=== PATIENT | male | born 1975 | race Caucasian/White ===

== ENCOUNTER 2018-02-12 10:11 | Emergency (ER) | payer SELFPAY ==
[2018-02-12] MEDS ORDERED: ACETAMINOPHEN 325 MG TABLET PO ONE (10:14)
--- NOTE | 2018-02-12 10:32 | ER Document Report ---
ED General - General Chief Complaint: Knee Injury Stated Complaint: LEG INJURY Time Seen by Provider: 02/12/18 10:29 Mode of Arrival: Wheelchair Information source: Patient TRAVEL OUTSIDE OF THE [place] IN LAST 30 DAYS: No - HPI Notes: 43-year-old male presents to the ED for complaints of right knee pain after a tree hit him yesterday. Pain is 6 out of 10, sharp, aching at rest. no radiation of pain. has not tried any icing, heat or elevation. Denies any fevers or chills. Unable to bear full weight. worse with time, nothing is making better. Denies prior history of trauma. denies fevers, chills, chest pain,palpitations, shortness of breath, dyspnea, nausea, vomiting, diarrhea, abdominal pain, hematuria,blurred vision, double vision, loss of vision, speech changes, LH, dizziness, syncope, headaches, wheezing, ST, URI, neck pain, weakness, bowel or bladder dysfunction, saddle anesthesia, numbness or tingling in bilateral upper or lower extremities equally, muscle paralysis, weakness in bilateral upper or lower extremities equally or rash. Denies IV drug use. - Related Data Allergies/Adverse Reactions: No Known Allergies Allergy (Verified 02/12/18 10:12) Past Medical History - General Information source: Patient - Social History Smoking Status: Never Smoker Family History: Reviewed & Not Pertinent - Immunizations Hx Diphtheria, Pertussis, Tetanus Vaccination: No Review of Systems - Review of Systems Constitutional: No symptoms reported EENT: No symptoms reported Cardiovascular: No symptoms reported Respiratory: No symptoms reported Gastrointestinal: No symptoms reported Genitourinary: No symptoms reported Male Genitourinary: No symptoms reported Musculoskeletal: See HPI Skin: No symptoms reported Hematologic/Lymphatic: No symptoms reported Neurological/Psychological: No symptoms reported -: Yes All other systems reviewed and negative Physical Exam - Notes Notes: PHYSICAL EXAMINATION: GENERAL: Well-appearing, well-nourished and in no acute distress. HEAD: Atraumatic, normocephalic. EYES: Pupils equal round and reactive to light, extraocular movements intact, sclera anicteric, conjunctiva are normal. ENT: Nares patent, oropharynx clear without exudates. Moist mucous membranes. NECK: Normal range of motion, supple without lymphadenopathy LUNGS: Breath sounds clear to auscultation bilaterally and equal. No wheezes rales or rhonchi. HEART: Regular rate and rhythm without murmurs ABDOMEN: Soft, nontender, nondistended abdomen. No guarding, no rebound. No masses appreciated. Musculoskeletal: Normal range of motion, no pitting or edema. No cyanosis. Right knee pain with palpation to lateral aspect of knee with noted swelling. negative sloane's sign. anterior and posterior drawer test negative. noted pain with posterior aspect. Dtr + 2 in BLE. Full motor and sensory function to BLE equally. No open wounds. No induration or drainage. Strength 5 out of 5 bilaterally equally. Ankle examination normal. Squeeze test negative. Hip examination normal. Pulses + 2 bilaterally and equally.negative squeeze bilaterally and equally. NEUROLOGICAL: Cranial nerves grossly intact. Normal speech, normal gait. Normal sensory, motor exams PSYCH: Normal mood, normal affect. SKIN: Warm, Dry, normal turgor, no rashes or lesions noted. Course - Re-evaluation Re-evalutation: 02/12/18 10:45 43-year-old male who is afebrile, vitals stable and in no distress evaluation for right knee pain after use up a tree days ago while he was at work. Right x- ray negative for fracture, does show a small joint effusion. No evidence of a septic joint, gout flare, dislocation, or fracture on exam and imaging. Vitals wnl. At this time, I do not see an indication for labs or further imaging. I have reevaluated this patient multiple times and no significant life threatening changes, no signs of toxicity, sepsis or peritonitis are noted. The patient and I have discussed the diagnosis and risks, and we agree with discharging home and close follow-up. We also discussed returning to the Emergency Department immediately if new or worsening symptoms occur with the understanding that symptoms and presentations can change. At this time will discharge with return precautions and follow-up recommendations. Verbal discharge instructions given a the bedside and opportunity for questions given. We have discussed the symptoms which are most concerning (e.g., sudden onset weakness, fever, changing or worsening pain) that necessitate immediate return. Medication warnings reviewed. All questions and concerns answered by this provider. Patient is in agreement with this plan and has verbalized understanding of return precautions and the need for primary care follow-up in the next 24-72 hours. Patient verbalized understanding of plan of care and agree with plan of care. Discharge - Discharge Clinical Impression: Right knee sprain Qualifiers: Encounter type: initial encounter Involved ligament of knee: other ligament Qualified Code(s): S83.8X1A - Sprain of other specified parts of right knee, initial encounter Condition: Good Instructions: Use of Crutches ([facility]), Ice & Elevation ([facility]), Knee Immobilizing Splint ([facility]), Sprained Knee ([facility]) Additional Instructions: You do not have evidence of a fracture on today's xrays. Your pain is likely to do soft tissue swelling and inflammation. This can last up to 6 weeks before completely resolving. You should continue to apply ice to the area regularly, keep the affected area elevated, and take ibuprofen 600mg every 6 hours as needed for pain. Please return if you have worsening pain, weakness, numbness, notice increasing redness or swelling to the area, develop a fever, or have any other symptoms that are concerning to you. Prescriptions: Ibuprofen 600 mg PO QIDP PRN #20 tablet PRN Reason: Forms: Return to Work Referrals: FARTUN TOBIAS DO [ACTIVE STAFF] - Follow up in 3-5 days JEANNE AMBROCIO DO [NO LOCAL MD] - Follow up in 3-5 days
[2018-02-12] MEDS ORDERED: KETOROLAC TROMETHAMINE 60 MG/2 ML SDV IM ONE (10:42)
--- NOTE | 2018-02-12 10:52 | RADIOLOGY REPORT (SQ) ---
EXAM DESCRIPTION: KNEE LEFT 4 VIEW COMPLETED DATE/TIME: 02/12/2018 10:41 am REASON FOR STUDY: injury COMPARISON: None. NUMBER OF VIEWS: Four views left knee. LIMITATIONS: None. FINDINGS: Small joint effusion. Bones intact. Maintained joint spaces. OTHER: No other significant finding. IMPRESSION: Small joint effusion. TECHNICAL DOCUMENTATION: JOB ID: [id number] Reading location - IP/workstation name: [email or web address]
== END 2018-02-12 11:06 | disposition home or self-care (01) ==
LOC: ER 10:11
DX: S83.91XA Sprain of unspecified site of right knee, initial encounter (principal); W22.8XXA Striking against or struck by other objects, initial encounter; Y93.H9 Activity, other involving exterior property and land maintenance, building and construction; Y99.0 Civilian activity done for income or pay
CPT/HCPCS: 99283; 96372; 73564; L1830; J1885

== ENCOUNTER 2019-01-29 16:49 | Emergency (ER) | payer SELFPAY ==
[2019-01-29] MEDS ORDERED: ONDANSETRON HCL INJ/PF 4 MG/2 ML SDV IV ONE (18:19)
[2019-01-29] MEDS ORDERED: KETOROLAC TROMETHAMINE INJ/PF 30 MG/1 ML SDV IV ONE (18:19)
[2019-01-29] MEDS ORDERED: NORMAL SALINE 1000 ML 1,000 ML IV ONE (18:19)
--- NOTE | 2019-01-29 18:24 | ER Document Report ---
ED GI/ - General Chief Complaint: Abdominal Pain Stated Complaint: ABDOMINAL PAIN Time Seen by Provider: 01/29/19 18:12 Mode of Arrival: Ambulatory Information source: Patient TRAVEL OUTSIDE OF THE [place] IN LAST 30 DAYS: No - HPI Patient complains to provider of: Abdominal pain, Other - LEFT KNEE PAIN Notes: 01/29/19 18:22 Patient here with complaints of abdominal pain, vomiting, feeling dehydrated left knee pain. Patient states that 2 days ago he was having some nausea and vomiting and felt like he was dehydrated while at work. Yesterday he went to work and actually vomited while he was at work. States nausea and vomiting seems to have improved some. Complains of having some right upper quadrant pain with this over the last few days. No chest pain or shortness of breath. No dysuria or hematuria. No diarrhea. No fever. No rash, no injury. He also states that there is a red swollen area to the left lateral aspect of the knee. No specific injury to this area. Full range of motion. No numbness, Eugene, weakness. Pain is constant, moderate, worse with movement. No other complaints. - Related Data Allergies/Adverse Reactions: No Known Allergies Allergy (Verified 01/29/19 16:50) Past Medical History - Social History Smoking Status: Unknown if Ever Smoked Family History: Reviewed & Not Pertinent Renal/ Medical History: Denies: Hx Peritoneal Dialysis - Immunizations Hx Diphtheria, Pertussis, Tetanus Vaccination: No Review of Systems - Review of Systems -: Yes All other systems reviewed and negative Physical Exam - Vital signs Vitals: Temp Pulse Resp BP Pulse Ox 98.6 F 90 18 113/75 96 01/29/19 16:52 01/29/19 16:52 01/29/19 16:52 01/29/19 16:52 01/29/19 16:52 - Notes Notes: GENERAL: alert, cooperative, nontoxic, no distress. HEAD: normocephalic, atraumatic EYES: conjunctiva pink without discharge, no external redness or swelling. EARS: no external swelling, no external redness NOSE: atraumatic, no external swelling MOUTH/THROAT: mucous membranes moist and pink, posterior pharynx without erythema, swelling, exudate. No trismus or drooling. NECK: soft, supple, full range of motion, no meningismus. CHEST: no distress, lungs clear and equal throughout. No wheezing, rales, rhonchi. CARDIAC: regular rate and rhythm, no murmur, normal capillary refill, normal pulses. No peripheral edema noted. ABDOMEN: Soft, tenderness to palpation of the right upper quadrant with mild voluntary guarding. No rebound tenderness. BACK: full range of motion, no CVA tenderness. EXTREMITIES: full range of motion of all extremities. Indurated area to the lateral aspect of the left knee with a scabbed center. Surrounding erythema. Tenderness to palpation. No circumferential erythema or knee effusion. Full range of motion of the left knee. Normal pulse and sensation distally. NEURO: alert and oriented x 3, no focal deficits, full range of motion of all extremities. PYSCH: appropriate mood, affect. Patient is cooperative. SKIN: pink, warm, dry, no rash. Course - Re-evaluation Re-evalutation: 01/29/19 20:09 Patient noted to have blood in his urine with no signs of infection, white count minimally elevated at 11. Chemistries and lipase currently pending. Right upper quadrant ultrasound and chest x-ray are negative. Due to the fact of where his pain is in the fact that he has blood in his urine I have ordered a CT without contrast to assess for potential kidney stone as the source of his pain. I updated the patient who verbalized understanding. We will continue to monitor. 01/29/19 21:33 Patient nontoxic-appearing with stable vitals. Patient here with complaints of right-sided abdominal pain. Initial labs showed a slightly elevated white count of 11. Chemistries show slightly elevated creatinine 1.77. The patient does report that he has had some nausea vomiting felt dehydrated, therefore it is p ossible that this could just be secondary to dehydration. He was given normal saline here in the emergency department. I have no previous labs to compare this to. I did inform the patient that he needs to have this reevaluated with his primary care doctor to ensure that this has improved. CT the abdomen and pelvis without contrast shows no acute abnormality with left-sided nonobstructive kidney stone. Patient is noted to have a early abscess to the left lateral knee with some mild surrounding cellulitis. It does not appear to be fluctuant at all and is not ready for I&D at this time. There is no sign of knee joint infection. Patient will be given a dose of antibiotics in the emergency department and will be discharged home on Bactrim and Keflex regarding the infection on his leg. He will also be given a prescription for some Zofran as well as Ultram. He is instructed to follow-up with his primary care doctor in the next few days to have his renal function checked as well as to have the lesion on his leg reevaluated. He should follow-up sooner if he develops any worsening pain in the abdomen, worsening pain or redness or swelling in the leg, persistent vomiting, high fever, or for any further concerns. The patient's emergency department workup and current diagnosis were explained to the patient and or family. Follow-up instructions were provided. Medications if prescribed were discussed. Instructions for when to return to the emergency department including specific worrisome symptoms were discussed with the patient and/or family. - Vital Signs Vital signs: Temp Pulse Resp BP Pulse Ox 98.6 F 90 18 113/75 96 01/29/19 16:52 01/29/19 16:52 01/29/19 16:52 01/29/19 16:52 01/29/19 16:52 - Laboratory Result Diagrams: 01/29/19 18:18 01/29/19 18:18 Laboratory results interpreted by me: 01/29/19 01/29/19 01/29/19 18:18 18:18 19:18 WBC 11.8 H Absolute Neutrophils 8.6 H Chloride 96 L BUN 34 H Creatinine 1.77 H Est GFR ( Amer) 51 L Est GFR (Non-Af Amer) 42 L Calcium 10.4 H ALT 17 L Total Protein 9.8 H Albumin 5.6 H Urine Blood MODERATE H Urine Urobilinogen 2.0 H - Diagnostic Test Radiology reviewed: Image reviewed, Reports reviewed - Chest x-ray negative, right upper quadrant ultrasound negative, CT abdomen pelvis with a nonobstructive left kidney stone, no other acute abnormalities. Discharge - Discharge Clinical Impression: Acute kidney injury, Dehydration, Cellulitis and abscess of left leg Abdominal pain Qualifiers: Abdominal location: right upper quadrant Qualified Code(s): R10.11 - Right upper quadrant pain Hematuria Qualifiers: Hematuria type: unspecified type Qualified Code(s): R31.9 - Hematuria, unspecified Condition: Stable Disposition: HOME, SELF-CARE Instructions: Abdominal Pain ([facility]), Dehydration ([facility]), Hematuria ([facility]), Kidney Failure ([facility]) Additional Instructions: Take medication as prescribed. Drink plenty of fluids. Follow-up with your family doctor at the next available appointment to have your kidney function rechecked as well as to reevaluate the wound on your leg. Follow-up sooner for worsening pain, fever, redness, swelling, persistent vomiting, or for any further concerns. Prescriptions: Tramadol HCl [Ultram 50 mg Tablet] 50 mg PO Q6HP PRN #12 tablet PRN Reason: Cephalexin Monohydrate [Keflex 500 mg Capsule] 500 mg PO Q6H #40 capsule Ondansetron HCl [Zofran 4 mg Tablet] 1 tab PO Q6H PRN #10 tablet PRN Reason: Sulfamethoxazole/Trimethoprim [Bactrim Ds Tablet] 1 each PO BID #20 tablet Forms: Elevated Blood Pressure, Smoking Cessation Education Referrals: [facility] [Provider Group] - Follow up as needed [facility] [Provider Group] - Follow up as needed
--- NOTE | 2019-01-29 19:03 | RADIOLOGY REPORT (SQ) ---
EXAM DESCRIPTION: CHEST 2 VIEWS COMPLETED DATE/TIME: 01/29/2019 6:50 pm REASON FOR STUDY: RIGHT FLANK/RUQ PAIN COMPARISON: None. EXAM PARAMETERS: NUMBER OF VIEWS: two views TECHNIQUE: Digital Frontal and Lateral radiographic views of the chest acquired. RADIATION DOSE: NA LIMITATIONS: none FINDINGS: LUNGS AND PLEURA: No opacities, masses or pneumothorax. No pleural effusion. MEDIASTINUM AND HILAR STRUCTURES: No masses or contour abnormalities. HEART AND VASCULAR STRUCTURES: Heart normal size. No evidence for failure. BONES: No acute findings. HARDWARE: None in the chest. OTHER: No other significant finding. IMPRESSION: NO ACUTE RADIOGRAPHIC FINDING IN THE CHEST. TECHNICAL DOCUMENTATION: JOB ID: [id number] [employer]- All Rights Reserved Reading location - IP/workstation name: [email or web address]
--- NOTE | 2019-01-29 19:22 | RADIOLOGY REPORT (SQ) ---
EXAM DESCRIPTION: U/S ABDOMEN LIMITED W/O DOP COMPLETED DATE/TIME: 01/29/2019 7:10 pm REASON FOR STUDY: RIGHT FLANK/RUQ PAIN COMPARISON: None. TECHNIQUE: Dynamic and static grayscale images acquired of the abdomen and recorded on PACS. Additio violetta selected color Doppler and spectral images recorded. LIMITATIONS: None. FINDINGS: PANCREAS: No masses. Visualized pancreatic duct normal caliber. LIVER: No masses. Echotexture normal. LIVER VASCULATURE: Normal directional flow of the main portal vein and hepatic veins. GALLBLADDER: No stones. Normal wall thickness. No pericholecystic fluid. ULTRASOUND-DETECTED NAM'S SIGN: Negative. INTRAHEPATIC DUCTS AND COMMON DUCT: CBD and intrahepatic ducts normal caliber. No filling defects. INFERIOR VENA CAVA: Normal flow. AORTA: No aneurysm. RIGHT KIDNEY: Normal size. Normal echogenicity. No solid or suspicious masses. No hydronephrosis. No calcifications. PERITONEAL AND RIGHT PLEURAL SPACE: No ascites or effusions. OTHER: No other significant findings. IMPRESSION: No ultrasound findings of the right upper quadrant to explain pain. Consider CT or MRI to further evaluate unexplained abdominal pain. TECHNICAL DOCUMENTATION: JOB ID: [id number] [employer]- All Rights Reserved Reading location - IP/workstation name: [email or web address]
[2019-01-29 19:37] LABS: ABSOLUTE EOSINOPHILS # (AUTO) 0.1 10^3/uL (0.0-0.6); ABSOLUTE LYMPHOCYTES (AUTO) 2.1 10^3/uL (0.5-4.7); ABSOLUTE MONOCYTES (AUTO) 0.9 10^3/uL (0.1-1.4); ABSOLUTE NEUT (AUTO) 8.6 10^3/uL (1.7-8.2); BASOPHILS % (AUTO) 0.4 % (0-2); EOSINOPHILS % (AUTO) 1.2 % (0-6); HEMATOCRIT 48.3 % (37.9-51.0); HEMOGLOBIN 15.9 g/dL (13.5-17.0); LYMPHOCYTES % (AUTO) 18.1 % (13-45); MEAN CORPUSCULAR HEMOGLOBIN 30.3 pg (27.0-33.4); MEAN CORPUSCULAR VOLUME 92 fl (80-97); MONOCYTES % (AUTO) 7.4 % (3-13); PLATELET COUNT 386 10^3/uL (150-450); RED BLOOD COUNT 5.26 10^6/uL (4.35-5.55); SEGMENTED NEUTROPHILS % (AUTO) 72.9 % (42-78); TOTAL CELLS COUNTED % (AUTO) 100 %; WHITE BLOOD COUNT 11.8 10^3/uL (4.0-10.5)
[2019-01-29 19:46] LABS: APPEARANCE,URINE CLEAR; BILIRUBIN,URINE NEGATIVE (NEGATIVE); COLOR,URINE YELLOW; GLUCOSE, URINE NEGATIVE (NEGATIVE); KETONES,URINE NEGATIVE (NEGATIVE); LEUKOCYTE ESTERASE,URINE NEGATIVE (NEGATIVE); NITRITE,URINE NEGATIVE (NEGATIVE); PROTEIN,URINE NEGATIVE (NEGATIVE); URINE SPECIFIC GRAVITY 1.026
[2019-01-29 20:17] LABS: ALANINE AMINOTRANSFERASE 17 U/L (21-72); ALBUMIN 5.6 g/dL (3.5-5.0); ALKALINE PHOSPHATASE 75 U/L (38-126); ANION GAP 18 (5-19); ASPARTATE AMINO TRANSFERASE 27 U/L (17-59); BILIRUBIN,DIRECT 0.3 mg/dL (0.0-0.4); BILIRUBIN,TOTAL 0.9 mg/dL (0.2-1.3); BLOOD UREA NITROGEN 34 mg/dL (7-20); CALCIUM 10.4 mg/dL (8.4-10.2); CARBON DIOXIDE 27 mmol/L (22-30); CHLORIDE 96 mmol/L (98-107); GLUCOSE 90 mg/dL (75-110); LIPASE 44.6 U/L (23-300); POTASSIUM 4.5 mmol/L (3.6-5.0); SODIUM 140.7 mmol/L (137-145); TOTAL PROTEIN 9.8 g/dL (6.3-8.2)
--- NOTE | 2019-01-29 21:05 | RADIOLOGY REPORT (SQ) ---
CT ABDOMEN PELVIS WITHOUT IV CONTRAST HISTORY: Right upper quadrant pain. Hematuria. COMPARISON: None. TECHNIQUE: CT scan of the abdomen and pelvis was performed without IV contrast. This exam was performed according to our departmental dose-optimization program, which includes automated exposure control, adjustment of the mA and/or kV according to patient size and/or use of iterative reconstruction technique. FINDINGS: The lung bases are clear. No pleural or pericardial effusions. There is no hiatal hernia. The gallbladder is contracted, limiting evaluation. The liver, spleen, pancreas, adrenal glands, and kidneys are unremarkable. There is a punctate nonobstructing stone in the left kidney lower pole. The pelvic organs are also unremarkable. No small bowel obstruction. The appendix is normal. There is no evidence of diverticulitis. No intraperitoneal free fluid or free air is identified. The aorta is normal caliber. No acute osseous findings are appreciated. No pathologic body wall hernia is seen. IMPRESSION: 1. No acute abdominal or pelvic pathology. 2. Please note the gallbladder is contracted which limits evaluation. Consider gallbladder ultrasound if there is high clinical concern. 3. Punctate nonobstructing stone in left kidney. No hydronephrosis.
[2019-01-29] MEDS ORDERED: SULFAMETHOXAZOLE/TRIMETHOPRIM 800-160 MG TABLET PO ONE (21:35)
[2019-01-29] MEDS ORDERED: CEPHALEXIN 500 MG CAPSULE PO ONE (21:35)
[2019-01-29 22:27] VITALS: BP 112/72
== END 2019-01-29 22:30 | disposition home or self-care (01) ==
LOC: ER 16:49
DX: N17.9 Acute kidney failure, unspecified (principal); E86.0 Dehydration; M25.562 Pain in left knee; L03.116 Cellulitis of left lower limb; R10.11 Right upper quadrant pain; R11.2 Nausea with vomiting, unspecified; R31.9 Hematuria, unspecified
CPT/HCPCS: 99284; 96361; 96374; 96375; 36415; 83690; 85025; 80053; 81001; 71046; 76705; 74176; J1885; J2405; J7030

== ENCOUNTER 2019-01-31 18:09 | Emergency (ER) | payer SELFPAY ==
[2019-01-31 18:36] VITALS: BP 119/78
--- NOTE | 2019-01-31 19:30 | ER Document Report ---
ED Medical Screen (RME) - General Chief Complaint: Abscess Recheck Stated Complaint: WOUND CHECK Time Seen by Provider: 01/31/19 19:26 Mode of Arrival: Ambulatory Information source: Patient Notes: 44-year-old male presented to ED for follow-up for an abscess on the left lateral knee. He was seen several days ago and was given a prescription for Bactrim and Keflex but states that he could not afford the prescriptions and has not started on. Patient is alert oriented respirations regular and unlabored. I have cleaned the wound with surgical scrub, rinsed it off with saline, opened it up with an 18-gauge and send a wound culture. Patient will need antibiotics in the emergency room as he states he cannot afford prescriptions. I have greeted and performed a rapid initial assessment of this patient. A comprehensive ED assessment and evaluation of the patient, analysis of test results and completion of medical decision making process will be conducted by an additional ED providers. Dictation of this chart was performed using voice recognition software; therefore, there may be some unintended grammatical errors. TRAVEL OUTSIDE OF THE [place] IN LAST 30 DAYS: No - Related Data Allergies/Adverse Reactions: No Known Allergies Allergy (Verified 01/31/19 18:28) Past Medical History - Social History Chew tobacco use (# tins/day): No Frequency of alcohol use: None Drug Abuse: Marijuana Renal/ Medical History: Denies: Hx Peritoneal Dialysis - Immunizations Hx Diphtheria, Pertussis, Tetanus Vaccination: No Physical Exam - Vital signs Vitals: Temp Pulse Resp BP Pulse Ox 98.5 F 77 22 H 119/78 95 01/31/19 18:35 01/31/19 18:35 01/31/19 18:35 01/31/19 18:35 01/31/19 18:35 Course - Vital Signs Vital signs: Temp Pulse Resp BP Pulse Ox 98.5 F 77 22 H 119/78 95 01/31/19 18:35 01/31/19 18:35 01/31/19 18:35 01/31/19 18:35 01/31/19 18:35
== END 2019-01-31 21:15 | disposition left against medical advice (07) ==
LOC: ER 18:09
DX: L02.416 Cutaneous abscess of left lower limb (principal)
CPT/HCPCS: 87070; 87077; 87186; 87205; 99281

== ENCOUNTER 2019-02-25 11:31 | Emergency (ER) | payer SELFPAY ==
[2019-02-25 11:42] VITALS: BP 117/74
[2019-02-25] MEDS ORDERED: IBUPROFEN 600 MG TABLET PO ONE (12:08)
[2019-02-25] MEDS ORDERED: OXYCODONE-ACETAMINOPHEN 5-325 MG TABLET PO ONE (12:08)
--- NOTE | 2019-02-25 12:10 | ER Document Report ---
ED Medical Screen (RME) - General Chief Complaint: Abscess Stated Complaint: KNEE PAIN Time Seen by Provider: 02/25/19 12:03 Mode of Arrival: Ambulatory Information source: Patient Notes: Patient is a 44-year-old male presented to the emergency department with abscess to his left lumbar area that has been there for several days. He does report has been draining but is causing him severe pain. He also reports a sore or abscess to his left anterior knee. He reports limited range of motion due to the pain and swelling. Denies any fever or chills. Exam: Swelling noted to left knee over the anterior surface, limited range of motion. X-rays ordered of left knee to evaluate for joint effusion versus osteomyelitis although I feel this is unlikely. Patient will be medicated in triage for pain with oral medications, he will then be seen in the back for probable incision and drainage I have greeted and performed a rapid initial assessment of this patient. A comprehensive ED assessment and evaluation of the patient, analysis of test results and completion of the medical decision making process will be conducted by additional ED providers. I have specifically instructed the patient or family members with the patient to immediately return to any nursing staff should anything change in the patient's condition or with their chief complaint. This medical record was dictated with voice recognizing software. There may be grammatical, syntax errors that are unintended. TRAVEL OUTSIDE OF THE [place] IN LAST 30 DAYS: No - Related Data Allergies/Adverse Reactions: No Known Allergies Allergy (Verified 02/25/19 11:32) Past Medical History - Social History Frequency of alcohol use: None Drug Abuse: Marijuana Renal/ Medical History: Denies: Hx Peritoneal Dialysis - Immunizations Hx Diphtheria, Pertussis, Tetanus Vaccination: No Physical Exam - Vital signs Vitals: Temp Pulse Resp BP Pulse Ox 97.8 F 73 18 117/74 99 02/25/19 11:36 02/25/19 11:36 02/25/19 11:36 02/25/19 11:36 02/25/19 11:36 Course - Vital Signs Vital signs: Temp Pulse Resp BP Pulse Ox 97.8 F 73 18 117/74 99 02/25/19 11:36 02/25/19 11:36 02/25/19 11:36 02/25/19 11:36 02/25/19 11:36
--- NOTE | 2019-02-25 12:41 | RADIOLOGY REPORT (SQ) ---
EXAM DESCRIPTION: KNEE LEFT 4 VIEW COMPLETED DATE/TIME: 02/25/2019 12:25 pm REASON FOR STUDY: Pain, swelling, eval for effusion COMPARISON: 02/12/2018 NUMBER OF VIEWS: Four views. TECHNIQUE: AP, lateral, and both oblique radiographic images acquired of the left knee. LIMITATIONS: None. FINDINGS: MINERALIZATION: Normal. BONES: No acute fracture or dislocation. No worrisome bone lesions. JOINT: No effusion. SOFT TISSUES: Focal soft tissue prominence overlies the patella. OTHER: No other significant finding. IMPRESSION: Prepatellar soft tissue prominence. No joint effusion. No acute osseous injury. TECHNICAL DOCUMENTATION: JOB ID: [id number] [employer].- All Rights Reserved Reading location - IP/workstation name: [email or web address]
--- NOTE | 2019-02-25 13:58 | ER Document Report ---
ED General - General Chief Complaint: Abscess Stated Complaint: KNEE PAIN Time Seen by Provider: 02/25/19 12:03 Mode of Arrival: Ambulatory Notes: 44-year-old male presented to the emergency department with abscess to his left lumbar area that has been there for several days. He does report has been draining but is causing him severe pain. He also reports a sore or abscess to his left anterior knee. He reports limited range of motion due to the pain and swelling. Denies any fever or chills. Denies any nausea or vomiting, denies neck stiffness, denies IV drug use. TRAVEL OUTSIDE OF THE [place] IN LAST 30 DAYS: No - Related Data Allergies/Adverse Reactions: No Known Allergies Allergy (Verified 02/25/19 11:32) Past Medical History - General Information source: Patient - Social History Smoking Status: Current Every Day Smoker Frequency of alcohol use: None Drug Abuse: Marijuana Family History: Reviewed & Not Pertinent Patient has suicidal ideation: No Patient has homicidal ideation: No Renal/ Medical History: Denies: Hx Peritoneal Dialysis - Immunizations Hx Diphtheria, Pertussis, Tetanus Vaccination: No Review of Systems - Review of Systems Constitutional: See HPI EENT: No symptoms reported Cardiovascular: See HPI Respiratory: See HPI Gastrointestinal: See HPI Genitourinary: No symptoms reported Male Genitourinary: No symptoms reported Musculoskeletal: No symptoms reported Skin: See HPI Hematologic/Lymphatic: No symptoms reported Neurological/Psychological: No symptoms reported Physical Exam - Vital signs Vitals: Temp Pulse Resp BP Pulse Ox 97.8 F 73 18 117/74 99 02/25/19 11:36 02/25/19 11:36 02/25/19 11:36 02/25/19 11:36 02/25/19 11:36 - Notes Notes: PHYSICAL EXAMINATION: Reviewed vital signs and charting by RN GENERAL: Alert, interacts well. No acute distress. HEAD: Normocephalic, atraumatic. EYES: Pupils equal and round. Extraocular movements intact. ENT: Oral mucosa moist, tongue midline. NECK: Full range of motion. Trachea midline. LUNGS: Clear to auscultation bilaterally, no wheezes, rales, or rhonchi. No respiratory distress. HEART: Regular rate and rhythm. No murmur ABDOMEN: soft, non-tender. No distention. Bowel sounds present EXTREMITIES: Moves all 4 extremities spontaneously. No edema, No cyanosis. PSYCH: Normal affect, normal mood. SKIN: Abscess he left lumbar area with erythematous base and a scab over it from patient attempting to manipulate it. Also has a small abscess on the left knee with a small scab where it looks like there was a head and drainage. Course - Re-evaluation Re-evalutation: 02/25/19 14:46 Patient presents with symptoms most consistent with an acute cellulitis. Vitals within normal limits. Patient does not meet sepsis criteria is overall very w ell in appearance. Exam and history are not consistent with DVT. Patient will be started on coverage for both staph and strep. Incision and drainage performed on the lumbar abscess. The area of erythema on his knee was not amendable to an incision and drainage. Patient is afebrile and no evidence of systemic infection. Plan is to give him another prescription for Bactrim and Keflex as he lost his previous ones that did not get filled. At this time will discharge with return precautions and follow-up recommendations. Verbal discharge instructions given a the bedside and opportunity for questions given. Medication warnings reviewed. Patient is in agreement with this plan and has verbalized understanding of return precautions and the need for primary care follow-up in the next 24-72 hours He is stable for discharge. 02/25/19 14:48 - Vital Signs Vital signs: Temp Pulse Resp BP Pulse Ox 97.8 F 73 18 117/74 99 02/25/19 11:36 02/25/19 11:36 02/25/19 11:36 02/25/19 11:36 02/25/19 11:36 Discharge - Discharge Clinical Impression: Abscess Cellulitis Qualifiers: Site of cellulitis: other site Qualified Code(s): L03.818 - Cellulitis of other sites Condition: Good Disposition: HOME, SELF-CARE Additional Instructions: The rash is likely due to infection of your skin called cellulitis. We performe d an incision and drainage of the one in your back and did get a little bit of purulent discharge from it. The one on your knee was not amendable to cutting open.. You need to take the antibiotics as prescribed. Do not stop even if the rash goes away until you have completed all the antibiotics. The area of redness was traced out here in the emergency department with a marking pen. You need to return to emergency department if the redness spreads outside of this area by more than 2 cm in any direction. You should also return if you develop fevers with temperature greater than 101, persistent vomiting, worsening pain, or have any other symptoms that are concerning to you.
[2019-02-25] MEDS ORDERED: CEPHALEXIN 500 MG CAPSULE PO ONE (14:51)
[2019-02-25] MEDS ORDERED: SULFAMETHOXAZOLE/TRIMETHOPRIM 800-160 MG TABLET PO ONE (14:51)
== END 2019-02-25 15:05 | disposition home or self-care (01) ==
LOC: ER 11:31
DX: L02.212 Cutaneous abscess of back [any part, except buttock and flank] (principal); L02.416 Cutaneous abscess of left lower limb; F17.200 Nicotine dependence, unspecified, uncomplicated
CPT/HCPCS: 99283; 73564; A6266

== ENCOUNTER 2019-02-27 20:09 | Emergency (ER) | payer SELFPAY ==
[2019-02-27] MEDS ORDERED: SULFAMETHOXAZOLE/TRIMETHOPRIM 800-160 MG TABLET PO ONE (21:26)
[2019-02-27] MEDS ORDERED: CEPHALEXIN 500 MG CAPSULE PO ONE (21:26)
--- NOTE | 2019-02-27 21:32 | ER Document Report ---
HPI - HPI Patient complains to provider of: left knee pain Pain Level: 5 Context: Patient is a 44-year-old male presents to the emergency department complaining of a left knee redness and swelling. Patient states he was at this facility 2 days ago for an abscess now on his left back. States that was incised and drained. States he also had a scab and some minor redness noted on his left knee at that point in time. States the provider took the scab off and stated he may have draining. Patient states the redness and draining has continued and he thinks increased which is why he presents to the emergency room. Patient has 2 markings on his left knee with surgical marker. They were both places by staff on 02/25/2019. The redness and swelling does not go past those 2 markings. there is some active discharge noted from the lesion on the left knee. Patient has full range of motion of his left knee without pain. States only pain he has is when you actively touch the discharge. Patient denies any history of MRSA. Patient states he was given 2 antibiotics but has been unable to fill them so he has not been taking them. Patient denies fevers. Past Medical History - General Information source: Patient - Social History Smoking Status: Current Every Day Smoker Chew tobacco use (# tins/day): No Frequency of alcohol use: None Drug Abuse: Marijuana Family History: Reviewed & Not Pertinent Patient has suicidal ideation: No Patient has homicidal ideation: No Renal/ Medical History: Denies: Hx Peritoneal Dialysis - Immunizations Hx Diphtheria, Pertussis, Tetanus Vaccination: No Vertical Provider Document - CONSTITUTIONAL Agree With Documented VS: Yes Notes: GENERAL: Alert, interacts well. No acute distress. HEAD: Normocephalic, atraumatic. EYES: Pupils equal, round, and reactive to light. Extraocular movements intact. ENT: Oral mucosa moist, tongue midline. NECK: Full range of motion. Supple. Trachea midline. LUNGS: Clear to auscultation bilaterally, no wheezes, rales, or rhonchi. No respiratory distress. HEART: Regular rate and rhythm. No murmur ABDOMEN: Soft, non-tender. Non-distended. Bowel sounds present in all 4 quadrants. EXTREMITIES: Moves all 4 extremities spontaneously. normal radial and dorsalis pedis pulses bilaterally. Approximately 3 cm x 3 cm area of redness with active purulent discharge noted anterior aspect of left knee. Full range of motion left knee no pain. Pain only upon palpation of active discharge site. BACK: no cervical, thoracic, lumbar midline tenderness. No saddle anesthesia, normal distal neurovascular exam. 2 cm x 2 cm area of active discharge noted left flank. Minor erythema surrounding. NEUROLOGICAL: Alert and oriented x3. Normal speech. cranial nerves II through XII grossly intact PSYCH: Normal affect, normal mood. SKIN: Warm, dry, normal turgor. No rashes or lesions noted. - INFECTION CONTROL TRAVEL OUTSIDE OF THE [place] IN LAST 30 DAYS: No Course - Re-evaluation Re-evalutation: Nursing staff ordered an x-ray of the left knee at triage. This was before I evaluated the patient. 02/27/19 21:29 Patient has full range of motion of the left knee. There is some minor erythema with active discharge noted to lesion. No true areas of fluctuance or induration noted. I am not suspecting septic joint at this time. patient denies fevers. Redness is well within the surgical marker barnes with which were placed on 02/25/2019 by staff here at this facility. I have discussed importance of taking antibiotics and continuing for Lesion to the left knee to drain. Good Rx prescription card provided to the patient. Patient stable for discharge - Vital Signs Vital signs: Temp Pulse Resp BP Pulse Ox 98.8 F 68 18 111/69 98 02/27/19 20:49 02/27/19 20:49 02/27/19 20:49 02/27/19 20:49 02/27/19 20:49 Discharge - Discharge Clinical Impression: Abscess Cellulitis Qualifiers: Site of cellulitis: extremity Site of cellulitis of extremity: lower extremity Laterality: left Qualified Code(s): L03.116 - Cellulitis of left lower limb Condition: Stable Disposition: HOME, SELF-CARE Instructions: Abscess ([facility]), Cephalexin ([facility]), Trimethoprim-Sulfa ([facility]), Post Incision and Drainage Additional Instructions: As we discussed you have been seen and treated in the emergency department for an abscess on her left knee. Draining abscesses are good. This means the infection is leaving your body. You should soak this area in warm water up to 3 times a day. Please also make sure you are taking antibiotics as prescribed. You have been provided discount prescription card to help afford your medications. Please also take [id number] Tylenol or Motrin for generalized pain. Please return to the emergency room for any concerns.
--- NOTE | 2019-02-27 21:33 | RADIOLOGY REPORT (SQ) ---
EXAM DESCRIPTION: XR KNEE 4 OR MORE VIEWS COMPLETED DATE/TME: 02/27/2019 20:16 CLINICAL HISTORY: 44 years, Male, pain COMPARISON: 02/25/2019 left knee NUMBER OF VIEWS: 4 TECHNIQUE: 4 view left knee LIMITATIONS: None. FINDINGS: Negative for acute fracture or dislocation. Prepatellar edema/soft tissue swelling, as before. Mild patellofemoral compartment degenerative change. IMPRESSION: Prepatellar edema/soft tissue swelling, as before copyright 2010 [employer]- All Rights Reserved
[2019-02-27 21:35] VITALS: BP 118/73
== END 2019-02-27 21:35 | disposition home or self-care (01) ==
LOC: ER 20:09
DX: L03.116 Cellulitis of left lower limb (principal); M25.562 Pain in left knee; F17.200 Nicotine dependence, unspecified, uncomplicated
CPT/HCPCS: 99283

== ENCOUNTER 2019-04-23 18:46 | Emergency (ER) | payer SELFPAY ==
[2019-04-23 18:51] VITALS: BP 126/75
--- NOTE | 2019-04-23 20:35 | ER Document Report ---
HPI - HPI Patient complains to provider of: bilat ear pain, tinnitus Time Seen by Provider: 04/23/19 20:33 Pain Level: 4 Context: 44 Yr old pt, with the listed pmh, presenting with bilat ear pain, L>R. The symptoms have been ongoing x 4 days. also some tinnitus which is chronic and decreased hearing also which has been on going for many months to years. no forms or trauma. hasn't sought care until now. There is no associated headache or drainage from ear. Secondary to the symptoms, patient came to emergency department for evaluation. Patient denies any neck pain or pain behind the ear. There is no pain with palpation of the pinna. There is no associated facial pain. Patient denies cough, congestion, chest pain, shortness of breath, vomiting, diarrhea, rash, fever, or any other complaints at this time. utd on shots, no recent antibiotics or steroids. no hx of diabetes or asthma. hasn't put anything in ears other than some hydrogen peroxide to flush them. no ear surgeries. Denies any other complaints at this time. - ROS Systems Reviewed and Negative: Yes All other systems reviewed and negative - To include 10 systems, unless mentioned in the hpi. - EENT EENT: REPORTS: Ear Pain Past Medical History - General Information source: Patient - Social History Smoking Status: Current Every Day Smoker Frequency of alcohol use: Occasional Family History: Reviewed & Not Pertinent Patient has suicidal ideation: No Patient has homicidal ideation: No Renal/ Medical History: Denies: Hx Peritoneal Dialysis - Immunizations Hx Diphtheria, Pertussis, Tetanus Vaccination: No Vertical Provider Document - CONSTITUTIONAL Notes: GENERAL_APPEARANCE: well_nourished, alert, cooperative, no_acute_distress, no_obvious_discomfort. pleasant, smiling, speaking in full sentences, in no sign of pain or resp distress, family at bedside. nontoxic. HEAD: no_swelling\tenderness on the head. there is no tenderness over the mastoid bones bilaterally. normocephalic. atraumatic. no hoover signs. no raccoon eyes. There is no tenderness with palpation of the pinna. There is no drainage coming from the bilateral ears. Auditory canal bilaterally are erythematous with scant purulent drainage and canals bilaterally clear of foreign body and bleeding. Tympanic membranes bilaterally are within normal limits. No active bleeding. no sign of mastoiditis. no hemotympanum EYES: PERRL, EOMI without pain, conjunctiva_clear. no nystagmus. no hyphema. no subconjunctival hemorrhage or drainage. no photophobia. NOSE: no_nasal_discharge or epistaxis. MOUTH: (-)decreased moisture. THROAT: no_tonsilar_inflammation/hypertrophy or exudate, no_airway_obstruction. uvula is midline. There is no trismus. There is no TMJ clicking or ttp. There is no submandibular hardness. no trismus. no broken teeth or sign of dental abscess. no sign of ludwigs, parotitis, or salivary gland stone. NECK: supple, no_neck_tenderness/swelling, there is no lymphadenopathy. There is no tenderness over the sternocleidomastoid muscle or thyroid cartilage. full rom and full strength. no meningeal signs. BACK: no_back_tenderness. CHEST_WALL: no_chest_tenderness. LUNGS: no_wheezing, ctab, (-)accessory muscle use, good air exchange bilateral. HEART: normal_rate, normal_rhythm, no_murmur, ABDOMEN: normal_BS, soft, no_abd_tenderness, (-)guarding, (-)rebound, no distension or peritoneal signs. EXTREMITIES: strength 5/5 in all_extremities, good pulses in all_extremities, no_swelling\tenderness in the extremities, no_edema. full rom. normal gait. good hand trauma doctor. brisk cap refill. SKIN: warm, dry, good_color, no_rash. no grossly visible overlying skin changes or signs of trauma. NEURO: cerebellar function intact, motor_intact, sensory_intact. cranial nerves 2-12 intact MENTAL_STATUS: responds_appropriately to questions. alert and oriented x 3, normal affect. - INFECTION CONTROL TRAVEL OUTSIDE OF THE [place] IN LAST 30 DAYS: No Course - Re-evaluation Re-evalutation: 04/23/19 21:48 Pt here for likely bilateral otitis externa. He does have chronic tinnitus and decreased hearing however he appears very well on exam and understands me without myself having to repeat myself in a normal tone of voice. Advised needs to follow-up with the ENT and audiology for this. We will discharge him with Ciprodex otic for bilateral ears and lipo-flavenoid for his tinitus. he takes no other meds chronically and doesn't have a pcp. advised to f/u with pcp/ent/speech language assistant in 1-2 days. return for any worsening symptoms. vss. well appearing. satting well on ra. neurononfocal. pt understands and agrees to plan. On reexam, pt improved remained stable. nontoxic. well appearing. pain controlled. tolerating po. requesting to go home. Documentation achieved through voice recording which my lead to some occasional accidental typographical errors. Extensive efforts have been made to proof read documentation to make sure these are the least as possible. - Vital Signs Vital signs: Temp Pulse Resp BP Pulse Ox 98.4 F 62 16 126/75 H 96 04/23/19 18:50 04/23/19 18:50 04/23/19 18:50 04/23/19 18:50 04/23/19 18:50 Discharge - Discharge Clinical Impression: Tinnitus Qualifiers: Laterality: bilateral Qualified Code(s): H93.13 - Tinnitus, bilateral Bilateral otitis externa Qualifiers: Otitis externa type: unspecified type Chronicity: acute Qualified Code(s): H60.503 - Unspecified acute noninfective otitis externa, bilateral Condition: Good Disposition: HOME, SELF-CARE Instructions: Otitis Externa ([facility]) Additional Instructions: Follow-up with PCP/ent/speech language assistant in 1 to 2 days. Return for any worsening symptoms. take the medications as prescribed. avoid going underwater. avoid using q-tips. Prescriptions: Bioflav,Lemon/Vit Bcomp,C [Lipo-Flavonoid Plus Caplet] 1 each PO DAILY PRN #14 tablet PRN Reason: See Label Comments Ciprofloxacin HCl/Dexameth [Ciprodex Otic Suspension 7.5 ml Bottle] 4 drop BT H_EAR BID 7 Days #1 bottle Referrals: JEANNE AMBROCIO DO [NO LOCAL MD] - Follow up as needed MISSY SILVEIRA DO [ASSOCIATE] - Follow up as needed
== END 2019-04-23 22:53 | disposition home or self-care (01) ==
LOC: ER 18:46
DX: H91.93 Unspecified hearing loss, bilateral (principal); H60.503 Unspecified acute noninfective otitis externa, bilateral; H57.13 Ocular pain, bilateral; H93.13 Tinnitus, bilateral; F17.200 Nicotine dependence, unspecified, uncomplicated
CPT/HCPCS: 99282

== ENCOUNTER 2019-05-08 11:36 | Emergency (ER) | payer SELFPAY ==
--- NOTE | 2019-05-08 12:03 | ER Document Report ---
ED Medical Screen (RME) - General Chief Complaint: Abscess Stated Complaint: POSSIBLE ABSCESS Time Seen by Provider: 05/08/19 11:59 Notes: Patient is a 44-year-old male presents to the emergency department with a chief complaint of abscess. Patient states he has had possible abscess to the side of his right wrist and is well to the right side of his head. Patient states he did attempt to squeeze these areas with minimal drainage. Patient reports extreme tenderness. Patient denies fever. Patient reports a history of abscesses without MRSA. TRAVEL OUTSIDE OF THE [place] IN LAST 30 DAYS: No - Related Data Allergies/Adverse Reactions: No Known Allergies Allergy (Verified 05/08/19 11:37) Past Medical History - Social History Frequency of alcohol use: None Drug Abuse: Marijuana Renal/ Medical History: Denies: Hx Peritoneal Dialysis - Immunizations Immunizations up to date: Yes Hx Diphtheria, Pertussis, Tetanus Vaccination: Yes Physical Exam - Vital signs Vitals: Temp Pulse Resp BP Pulse Ox 98.3 F 66 16 108/70 99 05/08/19 11:52 05/08/19 11:52 05/08/19 11:52 05/08/19 11:52 05/08/19 11:52 - Extremities Notes: There is an area of erythema that is raised and tender to touch to the right radial wrist. There is no drainage. There is a crusted center. Patient also has a area that is raised to the right front of his head that is tender to touch and erythematous without drainage. There is also a crusted center to this. Both of these are firm. Course - Re-evaluation Re-evalutation: 05/08/19 12:03 I have greeted and performed a rapid initial assessment of this patient. A comprehensive ED assessment and evaluation of the patient, analysis of test results and completion of the medical decision making process will be conducted by additional ED providers. - Vital Signs Vital signs: Temp Pulse Resp BP Pulse Ox 98.3 F 66 16 108/70 99 05/08/19 11:52 05/08/19 11:52 05/08/19 11:52 05/08/19 11:52 05/08/19 11:52
[2019-05-08] MEDS ORDERED: CLINDAMYCIN HCL 150 MG CAPSULE PO ONE (14:02)
--- NOTE | 2019-05-08 14:08 | ER Document Report ---
ED General - General Chief Complaint: Abscess Stated Complaint: POSSIBLE ABSCESS Time Seen by Provider: 05/08/19 11:59 TRAVEL OUTSIDE OF THE [place] IN LAST 30 DAYS: No - HPI Notes: Patient is a 44-year-old male who presents to the emergency department for evaluation of abscesses. He has one abscess on his forehead, one on his right wrist. They both presented themselves over the last 7 to 10 days. Denies any fevers or chills, no nausea or vomiting. He states that he is tried to squeeze both of them, has not gotten any significant purulent drainage from them. Does have a history of MRSA obtained from the knee wound in the past. - Related Data Allergies/Adverse Reactions: No Known Allergies Allergy (Verified 05/08/19 11:37) Past Medical History - General Information source: Patient - Thank you we make it worse - Social History Smoking Status: Current Every Day Smoker Frequency of alcohol use: None Drug Abuse: Marijuana Family History: Reviewed & Not Pertinent Patient has suicidal ideation: No Patient has homicidal ideation: No Renal/ Medical History: Denies: Hx Peritoneal Dialysis Skin Medical History: Reports Hx MRSA - Thank you we make it worse and make it worse - Immunizations Immunizations up to date: Yes Hx Diphtheria, Pertussis, Tetanus Vaccination: Yes Review of Systems - Review of Systems Constitutional: No symptoms reported EENT: No symptoms reported Cardiovascular: No symptoms reported Respiratory: No symptoms reported Gastrointestinal: No symptoms reported Genitourinary: No symptoms reported Musculoskeletal: No symptoms reported Skin: See HPI Neurological/Psychological: No symptoms reported Physical Exam - Vital signs Vitals: Temp Pulse Resp BP Pulse Ox 98.3 F 66 16 108/70 99 05/08/19 11:52 05/08/19 11:52 05/08/19 11:52 05/08/19 11:52 05/08/19 11:52 - Notes Notes: Is a pleasant 44-year-old male appears stated age in no acute distress. Vital signs reviewed, please refer to chart. Head is normocephalic, atraumatic. Pupils equal round, reactive to light. Neck is supple without meningismus. Heart is regular rate and rhythm. Lungs are clear to auscultation bilaterally. Abdomen soft and nontender. Examination of the skin yields a 2.5 cm area of induration with central eschar on the radial aspect of the right wrist. There is no significant fluctuance, a area is indurated with significant surrounding erythema. Neurovascularly intact distally. He has a 2 cm similar looking lesion on the right forehead at hairline. Again no significant fluctuance, only surrounding erythema and induration. Course - Re-evaluation Re-evalutation: 05/08/19 14:07 Patient presents emergency department for evaluation. These are likely developing and/or drained abscesses with significant infection, but there is no current drainage to obtain the I&D. Findings were explained to the patient. He was strongly discouraged from squeezing his lesions in the future. I will then start him on Clinda mycin. I reviewed prior culture which revealed an YOLI of less than 0.5 to this medication. He is amenable to this plan. He is to follow-up with primary care, return to the ED with worsening or concerning sy mptoms of any sort. - Vital Signs Vital signs: Temp Pulse Resp BP Pulse Ox 98.3 F 66 16 108/70 99 05/08/19 11:52 05/08/19 11:52 05/08/19 11:52 05/08/19 11:52 05/08/19 11:52 Discharge - Discharge Clinical Impression: Cellulitis Condition: Stable Disposition: HOME, SELF-CARE Instructions: MRSA Cellulitis ([facility]), Cellulitis ([facility]) Additional Instructions: Keep area clean with soap and water. Do not squeeze. Take antibiotics as prescribed until gone. Return to the emergency department with worsening or new concerning symptoms of any sort.
[2019-05-08 14:22] VITALS: BP 116/68
== END 2019-05-08 14:23 | disposition home or self-care (01) ==
LOC: ER 11:36
DX: L02.01 Cutaneous abscess of face (principal); L02.413 Cutaneous abscess of right upper limb; L03.90 Cellulitis, unspecified; F17.200 Nicotine dependence, unspecified, uncomplicated
CPT/HCPCS: 99282

== ENCOUNTER 2019-12-11 10:28 | Emergency (ER) | payer SELFPAY ==
--- NOTE | 2019-12-11 10:59 | ER Document Report ---
HPI - HPI Onset: This morning Onset/Duration: Gradual Quality of pain: Achy Context: Patient presents to the RTC for evaluation of diarrhea. Patient does complain of some shortness of breath with mild cough. Patient does acknowledge smoking 1 pack/day. Patient reports symptoms started today. Patient without any fever, sore throat, body aches, runny nose, headache, or abdominal pain. Patient does complain of some diarrhea symptoms. Associated Symptoms: Nonproductive cough, Diarrhea. denies: Fever, Vomiting, Rhinnorhea Exacerbated by: Denies Relieved by: Denies Similar symptoms previously: Yes Recently seen / treated by doctor: No - ROS ROS below otherwise negative: Yes Systems Reviewed and Negative: Yes All other systems reviewed and negative - CONSTITUTIONAL Constitutional: DENIES: Fever, Chills - EENT EENT: DENIES: Sore Throat, Congestion - CARDIOVASCULAR Cardiovascular: DENIES: Chest pain - RESPIRATORY Respiratory: REPORTS: Coughing. DENIES: Trouble Breathing - GASTROINTESTINAL Gastrointestinal: REPORTS: Diarrhea. DENIES: Abdominal Pain, Patient vomiting - DERM Skin Color: Normal Skin Problems: None Past Medical History - General Information source: Patient - Social History Smoking Status: Current Every Day Smoker Family History: Reviewed & Not Pertinent - Medical History Medical History: Negative Renal/ Medical History: Denies: Hx Peritoneal Dialysis Skin Medical History: Reports Hx MRSA - Thank you we make it worse and make it worse Surgical Hx: Negative - Immunizations Immunizations up to date: Yes Hx Diphtheria, Pertussis, Tetanus Vaccination: Yes Vertical Provider Document - CONSTITUTIONAL Agree With Documented VS: Yes Exam Limitations: No Limitations General Appearance: WD/WN, No Apparent Distress - INFECTION CONTROL TRAVEL OUTSIDE OF THE [place] IN LAST 30 DAYS: No - HEENT HEENT: Atraumatic, Normal ENT Exam, Normocephalic - NECK Neck: Normal Inspection, Supple. negative: Lymphadenopathy-Left, Lymphadenopathy-Right - RESPIRATORY Respiratory: No Respiratory Distress. negative: Chest Non-Tender, Rhonchi, Wheezing Notes: Dry cough - CARDIOVASCULAR Cardiovascular: Regular Rate, Regular Rhythm, No Murmur - BACK Back: Normal Inspection - MUSCULOSKELETAL/EXTREMETIES Musculoskeletal/Extremeties: MAEW - NEURO Level of Consciousness: Awake, Alert, Appropriate Motor/Sensory: No Motor Deficit - DERM Integumentary: Warm, Dry, No Rash Course - Re-evaluation Re-evalutation: 12/11/19 11:20 The patient was evaluated during the global Covid 19 pandemic, and that diagnosis was suspected/considered upon their initial presentation. Their evaluation, treatment and testing was consistent with current guidelines for patients who present with complaints or symptoms that may be related to Covid 19. Patient presents with upper respiratory symptoms worrisome for possible Covid 19. Patient does not have emergency worring symptoms such as difficulty breathing, shortness of breath, chest pain, pressure, confusion or cyanosis. Patient appears suitable for discharge as they are not of an advanced age, do not have any chronic medical conditions such as diabetes, CAD, immune deficiency, chronic lung disease or chronic kidney disease. Patient's vital signs are stable and patient is nontoxic in appearance. Good return precautions have been discussed with patient, patient verbalized understanding and is agreeable with discharge plan of care at this time. 12/11/19 11:20 Boss testing was not sent on patient as he did not have any chronic. 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 Patient was given instructions for concern about presumptive positive covid 19 including instructions to stay at home and self quarantine for 2 weeks. - Laboratory Laboratory results interpreted by me: 12/11/19 12:08 Labs- Entire Visit 12/11/19 12/11/19 10:50 10:50 Influenza A (Rapid) NEGATIVE Influenza B (Rapid) NEGATIVE Group A Strep Rapid NEGATIVE Discharge - Discharge Clinical Impression: Cough, screening for covid 19 Diarrhea Qualifiers: Diarrhea type: unspecified type Qualified Code(s): R19.7 - Diarrhea, unspecified Condition: Stable Disposition: HOME, SELF-CARE Instructions: Diarrhea, Nonspecific ([facility]), Upper Respiratory Illness ([facility]) Additional Instructions: Return immediately for any new or worsening symptoms Followup with your primary care provider, call tomorrow to make a followup appointment You should stay home in quarantine for 2 weeks. If you have worsening symptoms that you do not feel like you can safely manage at home, present to the emergency department or call 911. Forms: Return to Work Referrals: LOCAL,NO [Primary Care Provider] - Follow up as needed
[2019-12-11 11:36] VITALS: BP 137/74
[2019-12-11 11:39] LABS: A TYPE INFLUENZA AG NEGATIVE (NEGATIVE); B INFLUENZA AG NEGATIVE (NEGATIVE)
== END 2019-12-11 13:20 | disposition home or self-care (01) ==
LOC: ER 10:28
DX: R19.7 Diarrhea, unspecified (principal); R05 Cough; F17.200 Nicotine dependence, unspecified, uncomplicated; Z20.828 Contact with and (suspected) exposure to other viral communicable diseases
CPT/HCPCS: 87070; 87804; 87880; 99211